=== PATIENT | male | born 1970 | race African-American/Black ===

== ENCOUNTER 2017-03-30 17:53 | Emergency (ER) | payer OTHER ==
[~2017-03-30] VITALS: Ht 175.3 cm; Wt 77.1 kg
[~2017-03-30 17:53] MED LIST: FISH OIL300 MG PO; FLEXERIL PO; GLUCOTROL5 MG PO; IBUPROFEN 600600 M1 PO; KEFLEX500 MG PO; LIPITOR; LISINOPRIL10 MG PO; LORTAB PO; LOSARTAN-HCTZ1 EAC1; METFORMIN PO
[2017-03-30] MEDS ORDERED: ROBAXIN500 MG PO (19:40)
[2017-03-30] MEDS ORDERED: NAPROSYN500 MG PO (19:40)
[2017-03-30] MEDS ORDERED: TRAMADOL 50 MG50 MG PO (19:44)
== END 2017-03-30 20:15 | disposition home or self-care (01) ==
LOC: ER 17:53
DX: S98.922A Partial traumatic amputation of left foot, level unspecified, initial encounter (principal); J11.1 Influenza due to unidentified influenza virus with other respiratory manifestations; M54.6 Pain in thoracic spine; I10 Essential (primary) hypertension; E11.9 Type 2 diabetes mellitus without complications; E78.00 Pure hypercholesterolemia, unspecified; X58.XXXA Exposure to other specified factors, initial encounter; Y93.89 Activity, other specified; Y92.89 Other specified places as the place of occurrence of the external cause; Y99.8 Other external cause status

== ENCOUNTER 2017-06-10 10:44 | Emergency (ER) | payer OTHER ==
[~2017-06-10] VITALS: Ht 160 cm; Wt 77.1 kg
--- NOTE | ~2017-06-10 | EKG ---
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: KKODJOVI : 1970 Requested By: Christoph Garcia Order Number: [id number] MD: Erickson Echevarria Measurements Intervals [place] Rate: 73 P: 59 NE: 146 QRS: 28 QRSD: 89 T: 25 QT: 380 QTc: 419 Interpretive Statements Sinus rhythm Poor R wave progression Compared to ECG 07/24/2009 17:17:07 No significant change was found Electronically Signed On 06-10-2017 14:09:53 CDT by Erickson Echevarria [email or web address] <ELECTRONICALLY SIGNED> By: Erickson Echevarria MD, [facility] 06/10/17 1409 1112 11 Erickson Echevarria MD, FACC /EPI
[~2017-06-10 10:44] MED LIST changes: +NAPROSYN500 MG PO; +ROBAXIN500 MG PO; +TRAMADOL 50 MG50 MG PO
[2017-06-10] MEDS ORDERED: NORVASC5 MG PO (11:03)
[2017-06-10] MEDS ORDERED: JANUMET 50-1,01 EACH (11:03)
[2017-06-10 11:21] LABS: ABSOLUTE NEUTROPHILS 8.1 thou/uL (1.4-8.2); BASOPHILS 0.7 % (0.0-2.0); EOSINOPHILS 1.5 % (0.0-3.0); HEMATOCRIT 41.9 % (42.0-52.0); HEMOGLOBIN 14.6 gm/dL (14.0-18.0); LYMPHOCYTES 15.5 % (24.0-44.0); MCH 32.4 pg (26.0-34.0); MCHC 34.9 g/dL (28.0-37.0); MONOCYTES 6.8 % (1.0-8.0); PLATELET COUNT 287 thou/uL (150-400); POLYS 75.5 % (36.0-66.0); RBC 4.51 mil/uL (4.50-6.00); RDW 13.8 % (10.5-14.5); WBC 10.7 thou/uL (4.0-11.0)
[2017-06-10 11:36] LABS: ANION GAP 9 mmol/L (7-16); BUN 9 mg/dL (7-18); CALCIUM 9.2 mg/dL (8.5-10.1); CHLORIDE 101 mmol/L (98-107); CO2 25 mmol/L (21-32); CREATININE 0.8 mg/dL (0.7-1.3); GLUCOSE 191 mg/dL (74-106); POTASSIUM 3.8 mmol/L (3.5-5.1); SODIUM 135 mmol/L (136-145)
[2017-06-10 11:41] LABS: ALBUMIN 4.2 g/dL (3.4-5.0); SGOT 47 U/L (15-37); SGPT 57 U/L (30-65); TOTAL BILIRUBIN 0.3 mg/dL (<0.1-1.0); TOTAL PROTEIN 7.7 g/dL (6.4-8.2); TROPONIN-I < 0.04 ng/mL (<0.06)
[2017-06-10] MEDS ORDERED: NAPROSYN500 MG PO (12:39)
[2017-06-10] MEDS ORDERED: TIZANIDINE HCL4 MG PO (12:39)
[2017-06-10 12:57] VITALS: BP 134/77
== END 2017-06-10 12:58 | disposition home or self-care (01) ==
LOC: ER 10:44
PROVIDERS: Nurse Practitioner
DX: M54.16 Radiculopathy, lumbar region (principal); R20.0 Anesthesia of skin; R20.2 Paresthesia of skin; J06.9 Acute upper respiratory infection, unspecified; E11.9 Type 2 diabetes mellitus without complications; E78.00 Pure hypercholesterolemia, unspecified; I10 Essential (primary) hypertension; F17.210 Nicotine dependence, cigarettes, uncomplicated

== ENCOUNTER 2017-12-31 12:40 | Emergency (ER) | payer OTHER ==
[~2017-12-31] VITALS: Ht 162.6 cm; Wt 77.1 kg
[~2017-12-31 12:40] MED LIST changes: +JANUMET 50-1,01 EACH; +NORVASC5 MG PO; +TIZANIDINE HCL4 MG PO
[2017-12-31 14:30] VITALS: BP 121/97
== END 2017-12-31 14:36 | disposition home or self-care (01) ==
LOC: ER 12:40
DX: S93.402A Sprain of unspecified ligament of left ankle, initial encounter (principal); E11.9 Type 2 diabetes mellitus without complications; E78.00 Pure hypercholesterolemia, unspecified; I10 Essential (primary) hypertension; F17.210 Nicotine dependence, cigarettes, uncomplicated; V49.19XA Passenger injured in collision with other motor vehicles in nontraffic accident, initial encounter; Y93.89 Activity, other specified; Y92.410 Unspecified street and highway as the place of occurrence of the external cause; Y99.8 Other external cause status

== ENCOUNTER 2020-06-22 18:23 | Emergency (ER) | payer OTHER ==
[~2020-06-22] VITALS: Ht 160 cm; Wt 77.1 kg
[2020-06-22 19:29] LABS: HEMATOCRIT 42.4 % (42.0-52.0); HEMOGLOBIN 14.8 gm/dL (14.0-18.0); MCH 33.2 pg (26.0-34.0); MCV 94.9 fL (80.0-100.0); PLATELET COUNT 287 thou/uL (150-400); RBC 4.47 mil/uL (4.50-6.00); RDW 14.4 % (10.5-14.5); WBC 11.9 thou/uL (4.0-11.0)
[2020-06-22 19:44] LABS: CALCIUM 10.5 mg/dL (8.5-10.1); CREATININE 0.8 mg/dL (0.7-1.3); TOTAL BILIRUBIN 0.5 mg/dL (0.2-1.0); TOTAL PROTEIN 8.4 g/dL (6.4-8.2)
[2020-06-22 19:46] LABS: POTASSIUM 2.5 mmol/L (3.5-5.1)
[2020-06-22 19:51] LABS: ABSOLUTE NEUTROPHILS 9.3 thou/uL (1.4-8.2); LARGE PLATELETS FEW
[2020-06-22 19:52] LABS: POLYCHROMASIA SLIGHT
[2020-06-22] MEDS ORDERED: ST. JOSEPH ASPI81 MG PO (20:51)
[2020-06-22] MEDS ORDERED: CENTRUM MEN'S1 EACH PO (20:52)
[2020-06-22] MEDS ORDERED: POTASSIUM20 PO (21:31)
[2020-06-22] MEDS ORDERED: NORCO5 PO (21:31)
[2020-06-22 21:52] VITALS: BP 173/91
--- NOTE | 2020-06-23 07:04 | EKG ---
[place] [address] 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: JON : 1970 Requested By: Hugo Prince Order Number: [id number] MD: Franck Pena Measurements Intervals [place] Rate: 72 P: 35 [place]: 152 QRS: 43 QRSD: 91 T: 39 QT: 414 QTc: 454 Interpretive Statements Sinus rhythm Consider left ventricular hypertrophy Anterior Q waves, possibly due to LVH Baseline wander in lead(s) V3 Compared to ECG 06/10/2017 11:12:58 Left ventricular hypertrophy now present Q waves now present Poor R-wave progression no longer present Electronically Signed On 06-23-2020 7:04:39 CDT by Franck Pena [email or web address] <ELECTRONICALLY SIGNED> By: Franck Pena MD, FACC 06/23/20703 22 22 Franck Pena MD, [facility] /EPI
== END 2020-06-22 21:57 | disposition home or self-care (01) ==
LOC: ER 18:23
PROVIDERS: Physician Assistant
DX: R07.81 Pleurodynia (principal); M54.9 Dorsalgia, unspecified; R10.9 Unspecified abdominal pain; E87.6 Hypokalemia; E83.42 Hypomagnesemia; E11.9 Type 2 diabetes mellitus without complications; I10 Essential (primary) hypertension; E78.00 Pure hypercholesterolemia, unspecified; F17.210 Nicotine dependence, cigarettes, uncomplicated; Z89.429 Acquired absence of other toe(s), unspecified side; Z79.899 Other long term (current) drug therapy; Z79.82 Long term (current) use of aspirin; W19.XXXA Unspecified fall, initial encounter; Y93.89 Activity, other specified; Y92.89 Other specified places as the place of occurrence of the external cause; Y99.8 Other external cause status

== ENCOUNTER 2021-01-12 22:44 | Emergency (ER) | payer OTHER ==
[~2021-01-12] VITALS: Ht 165.1 cm; Wt 77.1 kg
[~2021-01-12 22:44] MED LIST changes: +CENTRUM MEN'S1 EACH PO; +NORCO5 PO; +POTASSIUM20 PO; +ST. JOSEPH ASPI81 MG PO
[2021-01-13] MEDS ORDERED: JANUMET 50-1,01 EACH PO
[2021-01-13 00:28] LABS: ABSOLUTE NEUTROPHILS 9.4 thou/uL (1.4-8.2); EOSINOPHILS 0.9 % (0.0-3.0); HEMATOCRIT 42.1 % (42.0-52.0); HEMOGLOBIN 14.4 gm/dL (14.0-18.0); LYMPHOCYTES 13.9 % (24.0-44.0); MCH 31.9 pg (26.0-34.0); MCHC 34.2 g/dL (28.0-37.0); MCV 93.3 fL (80.0-100.0); MONOCYTES 6.6 % (1.0-8.0); PLATELET COUNT 289 thou/uL (150-400); POLYS 77.6 % (36.0-66.0); RBC 4.52 mil/uL (4.50-6.00); RDW 14.3 % (10.5-14.5); WBC 12.1 thou/uL (4.0-11.0)
[2021-01-13 00:48] LABS: ALBUMIN 3.5 g/dL (3.4-5.0); CALCIUM 9.2 mg/dL (8.5-10.1); CREATININE 1.6 mg/dL (0.7-1.3); TOTAL BILIRUBIN 0.4 mg/dL (0.2-1.0); TOTAL PROTEIN 7.5 g/dL (6.4-8.2)
[2021-01-13 00:50] LABS: POTASSIUM 2.8 mmol/L (3.5-5.1)
[2021-01-13 01:42] VITALS: BP 127/64
--- NOTE | 2021-01-13 07:36 | EKG ---
[place] [place] [address] [place] [address] ELECTROCARDIOGRAM REPORT Name: JEFFREY BILLINGSLEY [facility]: [facility] [id number] Admission: 01/12/21 Attend Phys: Discharge: 01/13/21 Date of : 66 Report #: [id number] [facility] ED Test Date: 2021-01-13 Test Time: 00:04:28 Pat Name: JEFFREY BILLINGSLEY Department: Room: Gender: Body Care Manager: JEREMY : 1970 Requested By: Samuel Dominguez Order Number: [id number] MD: Erickson Echevarria Measurements Intervals [place] Rate: 89 P: 18 [place]: 111 QRS: 16 QRSD: 89 T: 34 QT: 367 QTc: 447 Interpretive Statements Sinus rhythm Borderline short [place] interval Poor R wave progression Baseline wander in lead(s) V2,V3 Compared to ECG 06/22/2020 20:23:27 Nonspecific change in the ST and T wave segments Electronically Signed On 01-13-2021 7:36:32 CDT by Erickson Echevarria [email or web address] <ELECTRONICALLY SIGNED> By: Erickson Echevarria MD, [facility] 01/13/21 0736 0004 0004 Erickson Echevarria MD, [facility] /EPI
== END 2021-01-13 01:43 | disposition home or self-care (01) ==
LOC: ER 22:44
PROVIDERS: Emergency Medicine
DX: I95.9 Hypotension, unspecified (principal); E87.6 Hypokalemia; N28.9 Disorder of kidney and ureter, unspecified; E78.00 Pure hypercholesterolemia, unspecified; I10 Essential (primary) hypertension; E11.9 Type 2 diabetes mellitus without complications; F17.210 Nicotine dependence, cigarettes, uncomplicated; F12.90 Cannabis use, unspecified, uncomplicated; Z79.82 Long term (current) use of aspirin; Z79.899 Other long term (current) drug therapy